=== PATIENT | female | born 1970 | race Caucasian/White ===

== ENCOUNTER 2020-03-26 18:48 | Emergency (ER) | payer BC ==
[~2020-03-26] VITALS: Ht 167.6 cm; Wt 69.1 kg
[2020-03-26 19:07] VITALS: Ht 167.6 cm; Wt 69.1 kg
[2020-03-26 19:58] LABS: BASOPHILS 0.5 % (0-2); EOSINOPHILS 0.7 % (0-7); HEMATOCRIT 40.7 % (36.0-48.0); HEMOGLOBIN 13.8 g/dL (12-16); IMMATURE GRANULOCYTES 0.2 % (0-5); LYMPHOCYTES 39.2 % (15-50); MCH 31.1 pg (26.0-34.0); MCHC 33.9 g/dL (31.0-37.0); MCV 91.7 fL (80.0-100.0); MEAN PLATELET VOLUME 9.6 fL (7.4-10.4); MONOCYTES 7.3 % (2-11); NEUTROPHILS 52.1 % (40-80); PLATELET COUNT 276 10x3/uL (130-400); RBC 4.44 10x6/uL (4.00-5.40); RDW 12.8 % (11.5-14.5)
[2020-03-26 20:26] LABS: CALC OSMOLALITY 281 mosm/kg (275-300); CALCIUM 8.6 mg/dL (8.5-10.1); CARBON DIOXIDE 31.1 mmol/L (21.0-32.0); CHLORIDE - SERUM 103 mmol/L (98-107); CREATININE - SERUM 0.7 mg/dL (0.6-1.3); GLUCOSE 93 mg/dL (74-106); POTASSIUM - SERUM 3.7 mmol/L (3.5-5.1); SODIUM 141 mmol/L (136-145); UREA NITROGEN 16 mg/dL (7-18); eGFR NON AFRICAN AMERICAN > 90 mL/min (90-120)
[2020-03-26 20:30] LABS: APTT 24.9 SECONDS (22.8-39.4); INR 0.91 (0.85-1.17); PROTIME 12.2 SECONDS (11.6-15.0)
[2020-03-26 20:41] LABS: ALBUMIN 3.7 g/dL (3.4-5.0); ALKALINE PHOSPHATASE 87 U/L (30-120); ALT (SGPT) 25 U/L (10-68); BILIRUBIN - TOTAL 0.48 mg/dL (0.2-1.3); CKMB 0.4 U/L (0.0-3.6); CREATINE KINASE 55 UL (21-215); MAGNESIUM - SERUM 1.8 mg/dL (1.8-2.4); PROTEIN - SERUM 7.4 g/dL (6.4-8.2)
[2020-03-26 20:54] LABS: TROPONIN-I < 0.017 ng/mL (0.000-0.060)
[2020-03-26] MEDS ORDERED: METHOCARBAMOL500 MG PO (21:08)
[2020-03-26 21:33] VITALS: BP 15/57
== END 2020-03-26 21:33 | disposition home or self-care (01) ==
LOC: D.ER 18:48
PROVIDERS: Family Medicine
DX: M54.12 Radiculopathy, cervical region (principal); M54.6 Pain in thoracic spine; M79.602 Pain in left arm